=== PATIENT | female | born 1985 | race African-American/Black ===

== ENCOUNTER 2017-04-30 06:09 | Day surgery (SDC) | payer OTHER ==
[~2017-04-30] VITALS: Ht 149.9 cm; Wt 90.7 kg
--- NOTE | ~2017-04-30 | EKG ---
[place] [address] [facility] [place] [address] ELECTROCARDIOGRAM REPORT Name: LUDA ROBERT Room #: [facility]#: [id number] Admission: 04/30/17 Attend Phys: Charles Cruz MD Discharge: 04/30/17 Date of : 83 Report #: [id number] THIS REPORT FOR: //name// [facility] Test Date: 2017-04-30 Test Time: 12:16:03 Pat Name: LUDA ROBERT Department: Room: 150 6 Gender: F [employer] Scientist: LILIANA : 1985 Requested By: Charles Cruz Order Number: [id number] MD: Angel Iglesias Measurements Intervals [place] Rate: 92 P: 35 [place]: 137 QRS: -14 QRSD: 78 T: 34 QT: 354 QTc: 438 Interpretive Statements Sinus rhythm Probable left atrial enlargement RSR' in V1 or V2, right VCD or RVH No previous ECG available for comparison Electronically Signed On 05-03-2017 22:00:09 CDT by Angel Iglesias [email or web address] <ELECTRONICALLY SIGNED> By: Angel Iglesias MD 05/03/170 15 15 Angel Iglesias MD /PADMINI
[~2017-04-30 06:09] MED LIST: ADALAT CC30 MG PO; AMARYL4 MG PO; CLONAZEPAM 1 MG1 M1 PO; COREG6.25 MG PO; FLONASE 0.05%50 MCG NASAL; HYDROCHLOROTHIA25 M2 PO; IBUPROFEN 600600 M1; LORTAB 5 MG/5001 TA1; NEURONTIN600 MG PO; NORCO 10-325 T1 EACH PO; ONDANSETRON HCL4 M2 PO; OPANA ER10 M1 PO; PENNSAID112 GM TOP; PREDNISONE 10 M10 MG PO; PRINIVIL40 MG PO; PROPRANOLOL 1010 MG PO; PROVENTIL HFA6.7 G1 INH; TESSALON PERLE100 MG PO; VENTOLIN HFA 1818 GM INH; VITAMIN D2000 UNIT PO; WELLBUTRIN XL300 MG PO
[2017-04-30 12:07] LABS: CALCIUM 10.3 mg/dL (8.5-10.1); CREATININE 1.5 mg/dL (0.6-1.0); POTASSIUM 4.2 mmol/L (3.5-5.1)
[2017-04-30 12:12] LABS: ALBUMIN 3.7 g/dL (3.4-5.0); TOTAL BILIRUBIN 0.3 mg/dL (<0.1-1.0); TOTAL PROTEIN 7.7 g/dL (6.4-8.2)
[2017-04-30 13:05] VITALS: BP 110/78
[2017-04-30] MEDS ORDERED: NORCO 5-325 TA1 EACH PO (15:23)
[2017-04-30 15:44] VITALS: BP 110/78
== END 2017-04-30 16:52 | disposition home or self-care (01) ==
LOC: OR 06:09 → TBA 06:09 → OR 10:26
PROVIDERS: Surgery
DX: K42.0 Umbilical hernia with obstruction, without gangrene (principal); I10 Essential (primary) hypertension; N28.89 Other specified disorders of kidney and ureter; M19.90 Unspecified osteoarthritis, unspecified site; F32.89 Other specified depressive episodes; F41.8 Other specified anxiety disorders; Z98.890 Other specified postprocedural states; Z88.2 Allergy status to sulfonamides; Z88.8 Allergy status to other drugs, medicaments and biological substances; Z79.899 Other long term (current) drug therapy
CPT/HCPCS: 50010; 50101; 50386; 50417; 56524; 56526; 62110; 62900; 70005